=== PATIENT | male | born 1955 | race Caucasian/White ===

== ENCOUNTER 2021-05-11 15:28 | Emergency (ER) | payer OTHER ==
[~2021-05-11] VITALS: Ht 177.8 cm; Wt 113.4 kg
[~2021-05-11 15:28] MED LIST: AMIT75
== END 2021-05-11 16:38 | disposition home or self-care (01) ==
LOC: ER 15:28
DX: F10.129 Alcohol abuse with intoxication, unspecified (principal); Z59.0 Homelessness; R45.4 Irritability and anger
CPT/HCPCS: 99284

== ENCOUNTER 2025-05-06 14:08 | Emergency (ER) | payer OTHER ==
[~2025-05-06] VITALS: Ht 185.4 cm; Wt 108.9 kg
[~2025-05-06 14:08] MED LIST changes: +ALBU90OI INH; +DYAZIDE 37.5-21 EACH PO; +HYDPAM25 PO; +HYDR1TAB94 PO; +PRAZ1 PO; +Prednisone20 MG PO; +Vitamin D1000 UNI1 PO
[2025-05-06 14:57] LABS: Alanine Aminotransfer (ALT/SGP 19.0 U/L (12-78); Albumin, Blood 3.3 g/dL (3.4-5.0); Albumin/Globulin Ratio 0.9 (0.8-1.8); Anion Gap 15.0 mmol/L (3-11); Aspartate Aminotrans (AST/SGOT 32.0 U/L (12-37); Bilirubin, Total 0.3 mg/dL (0.1-1.0); Blood Urea Nitrogen 16.0 mg/dL (8-24); CO2, Blood 19.0 mmol/L (21-32); Calcium, Blood 8.0 mg/dL (8.5-10.1); Chloride, Blood 109.0 mmol/L (98-108); Creatinine, Blood 1.23 mg/dL (0.60-1.20); Ethanol (Alcohol), Blood, Med 181.0 mg/dL; Globulin, Blood 3.5 g/dL (2.2-4.0); Glucose, Blood 86.0 mg/dL (70-99); Potassium, Blood 4.4 mmol/L (3.5-5.5); Sodium, Blood 139.0 mmol/L (136-145); Total Protein, Blood 6.8 g/dL (6.4-8.2)
[2025-05-06] MEDS ORDERED: NS 1,000 ML IV SCH (15:00)
[2025-05-06 17:30] VITALS: BP 103/64
== END 2025-05-06 18:20 | disposition home or self-care (01) ==
LOC: ER 14:08
PROVIDERS: Emergency Medicine
DX: F10.129 Alcohol abuse with intoxication, unspecified (principal); F12.929 Cannabis use, unspecified with intoxication, unspecified; J44.9 Chronic obstructive pulmonary disease, unspecified; F17.200 Nicotine dependence, unspecified, uncomplicated; Z59.00 Homelessness unspecified; Z79.52 Long term (current) use of systemic steroids; Z79.899 Other long term (current) drug therapy; Z88.0 Allergy status to penicillin; Z88.5 Allergy status to narcotic agent; Z88.6 Allergy status to analgesic agent; Z88.8 Allergy status to other drugs, medicaments and biological substances
CPT/HCPCS: 80053; 80320; 93005; 93010; 99285-25; J7030

== ENCOUNTER 2025-06-14 12:34 | Emergency (ER) | payer OTHER ==
[~2025-06-14] VITALS: Ht 182.9 cm; Wt 90.7 kg
[2025-06-14 12:40] VITALS: BP 166/90
== END 2025-06-14 12:45 | disposition home or self-care (01) ==
LOC: ER 12:34
DX: F10.129 Alcohol abuse with intoxication, unspecified (principal); J44.9 Chronic obstructive pulmonary disease, unspecified; F17.210 Nicotine dependence, cigarettes, uncomplicated; Z79.52 Long term (current) use of systemic steroids; Z79.899 Other long term (current) drug therapy; Z88.0 Allergy status to penicillin; Z88.5 Allergy status to narcotic agent; Z88.6 Allergy status to analgesic agent; Z88.1 Allergy status to other antibiotic agents; Z88.8 Allergy status to other drugs, medicaments and biological substances
CPT/HCPCS: 99282

== ENCOUNTER 2025-06-16 20:22 | Inpatient (IN) | payer OTHER ==
[~2025-06-16] VITALS: Ht 182.9 cm; Wt 110.9 kg
[2025-06-16 21:19] LABS: BASOPHILS ABSOLUTE AUTO 0.02 K/mm3 (0.00-0.23); BASOPHILS PERCENT AUTO 0 % (0-2); EOSINOPHILS ABSOLUTE AUTO 0.02 K/mm3 (0.00-0.68); EOSINOPHILS PERCENT AUTO 0 % (0-6); Hematocrit 41.4 % (37.0-53.0); Hemoglobin 13.8 g/dL (13.5-17.5); IMMATURE GRAN ABSOLUTE AUTO 0.03 K/mm3 (0.00-0.10); IMMATURE GRAN PERCENT AUTO 1 % (0-1); LYMPHOCYTES ABSOLUTE AUTO 1.27 K/mm3 (0.84-5.20); LYMPHOCYTES PERCENT AUTO 21 % (21-46); MONOCYTES ABSOLUTE AUTO 0.73 K/mm3 (0.16-1.47); MONOCYTES PERCENT AUTO 12 % (4-13); Mean Corpuscular HGB Conc 33.3 g/dL (31.5-36.5); Mean Corpuscular Volume 93 fL (80-100); NEUTROPHILS ABSOLUTE AUTO 3.97 K/mm3 (1.96-9.15); NEUTROPHILS PERCENT AUTO 66 % (41-73); NRBC ABSOLUTE 0.00 K/mm3 (0.00-0.02); NRBC Auto 0.0 /100 WBC (0.0-0.2); Platelet Count 155 K/mm3 (150-400); RDW Coefficient Variation 16.5 % (11.7-14.2); RDW Standard Deviation 55.8 fL (35.1-46.3)
[2025-06-16 21:46] LABS: Alanine Aminotransfer (ALT/SGP 41.0 U/L (12-78); Albumin, Blood 3.9 g/dL (3.4-5.0); Albumin/Globulin Ratio 1.0 (0.8-1.8); Anion Gap 13.0 mmol/L (3-11); Aspartate Aminotrans (AST/SGOT 64.0 U/L (12-37); Bilirubin, Total 0.4 mg/dL (0.1-1.0); Blood Urea Nitrogen 13.0 mg/dL (8-24); CO2, Blood 23.0 mmol/L (21-32); Calcium, Blood 8.4 mg/dL (8.5-10.1); Chloride, Blood 105.0 mmol/L (98-108); Creatinine, Blood 0.98 mg/dL (0.60-1.20); Ethanol (Alcohol), Blood, Med 137.0 mg/dL; Globulin, Blood 4.1 g/dL (2.2-4.0); Glucose, Blood 102.0 mg/dL (70-99); Potassium, Blood 4.3 mmol/L (3.5-5.5); Sodium, Blood 137.0 mmol/L (136-145); Total Protein, Blood 8.0 g/dL (6.4-8.2)
[2025-06-16] MEDS ORDERED: LORazepam 2 MG/ML 1ML Injection IV ONE (22:55)
[2025-06-17] VITALS (7 sets, daily range): BP systolic 114–165; BP diastolic 68–115
[2025-06-17] MEDS ORDERED: HydrALAZINE HCl 20 MG / ML 1ML Vial IV PRN (00:55)
[2025-06-17] MEDS ORDERED: Ondansetron HCl 2 MG / ML 2ML Vial IV PRN (00:55)
[2025-06-17 04:51] LABS: BASOPHILS ABSOLUTE AUTO 0.04 K/mm3 (0.00-0.23); BASOPHILS PERCENT AUTO 1 % (0-2); EOSINOPHILS ABSOLUTE AUTO 0.03 K/mm3 (0.00-0.68); EOSINOPHILS PERCENT AUTO 0 % (0-6); Hematocrit 39.4 % (37.0-53.0); Hemoglobin 13.1 g/dL (13.5-17.5); IMMATURE GRAN ABSOLUTE AUTO 0.01 K/mm3 (0.00-0.10); IMMATURE GRAN PERCENT AUTO 0 % (0-1); LYMPHOCYTES ABSOLUTE AUTO 1.45 K/mm3 (0.84-5.20); LYMPHOCYTES PERCENT AUTO 22 % (21-46); MONOCYTES ABSOLUTE AUTO 0.87 K/mm3 (0.16-1.47); MONOCYTES PERCENT AUTO 13 % (4-13); Mean Corpuscular HGB Conc 33.2 g/dL (31.5-36.5); Mean Corpuscular Volume 95 fL (80-100); NEUTROPHILS ABSOLUTE AUTO 4.29 K/mm3 (1.96-9.15); NEUTROPHILS PERCENT AUTO 64 % (41-73); NRBC ABSOLUTE 0.00 K/mm3 (0.00-0.02); NRBC Auto 0.0 /100 WBC (0.0-0.2); Platelet Count 151 K/mm3 (150-400); RDW Coefficient Variation 16.4 % (11.7-14.2); RDW Standard Deviation 57.1 fL (35.1-46.3)
[2025-06-17 05:13] LABS: Alanine Aminotransfer (ALT/SGP 35.0 U/L (12-78); Albumin, Blood 3.5 g/dL (3.4-5.0); Albumin/Globulin Ratio 1.0 (0.8-1.8); Anion Gap 10.0 mmol/L (3-11); Aspartate Aminotrans (AST/SGOT 51.0 U/L (12-37); Bilirubin, Total 0.7 mg/dL (0.1-1.0); Blood Urea Nitrogen 13.0 mg/dL (8-24); CO2, Blood 24.0 mmol/L (21-32); Calcium, Blood 8.2 mg/dL (8.5-10.1); Chloride, Blood 107.0 mmol/L (98-108); Creatinine, Blood 0.91 mg/dL (0.60-1.20); Globulin, Blood 3.5 g/dL (2.2-4.0); Glucose, Blood 90.0 mg/dL (70-99); Magnesium, Blood 2.1 mg/dL (1.6-2.4); Potassium, Blood 3.9 mmol/L (3.5-5.5); Sodium, Blood 137.0 mmol/L (136-145); Total Protein, Blood 7.0 g/dL (6.4-8.2)
--- NOTE | 2025-06-17 05:13 | NUR ---
ARRIVAL TO UNIT - REPORT RECEIVED FROM MARIO IN ER AT 0400. PT ARRIVES TO [facility] 08 AT 0430. HE IS ASLEEP IN THE GURNEY, BUT ROUSES EASILY TO VERBAL STIMULI. HE IS ORIENTED TO SELF, PLACE, AND SITUATION, BUT OFF BY A DAY ON DATE. CIWA SCORE 13, HEADACHE, OBVIOUS TREMORS, REPORTING VISUAL AND AUDITORY DISTURBANCES. HE ENDORSES A MILD HEADACHE THAT HE RECEIVED TYLENOL FOR IN THE ER. HE IS COOPERATIVE WITH CARE AND FOLLOWING COMMANDS. PTS PERSONAL WHEELCHAIR AND BELONGINGS IN ROOM. HE REPORTS THAT HE USES HIS WHEELCHAIR "MOST OF THE TIME." HE IS ON ROOM AIR, SATS ABOVE 90% WITH VERY BRIEF DESATS WHILE SLEEPING. HE IS HYPERTENSIVE WITH BP IN 160'S. ON CONTINUOUS CARDIAC MONITORING AND IN A SINUS RHYTHM. PT REPORTS THAT HE SLEEPS IN HIS WHEELCHAIR WHEREVER HE CAN FIND SOMEWHERE DRY. UNABLE TO COMPLETE MEDICAL HISTORY DUE TO PATIENTS INABILITY TO STAY AWAKE. PER ER, PT STATED HE DRINKS 4-5 LARGE BEERS PER DAY, LAST DRINK ON 06/16 AT 1200. HE HAS BILATERAL AC IV'S, BOTH PATENT.
--- NOTE | 2025-06-17 07:54 | NUR ---
ASSUMPTION NOTE: PATIENT IS EASILY AROUSABLE WHEN RESTING. BREAKFAST TRAY WAS BROUGHT IN AND PATIENT SAT UP TO EAT. VITAL SIGNS STABLE. PATIENT REPORTED A HEADACHE AND HAS TREMORS. STATES "HE SEES PEOPLE AND HE'S NOT SURE HOW MANY ARE ALL REAL". THIS RN TO BRING IN MORNING MEDICATIONS AND MEDICATIONS PER CIWA SCORE. HAS CALL LIGHT WITHIN REACH & STATING NOTHIGN ELSE IS NEEDED AT THIS TIME.
--- NOTE | 2025-06-17 08:56 | NUR ---
MD ROUNDED: MD ROUNDED AND SPOKE WITH PATIENT REGARDING THE PLAN OF DISCHARGING EARLY THURSDAY TO CONTINUE HIS JOURNEY TO [place]. PATIENT REPORTED HE TAKES A RESCUE INHALER AT HOME, MD TO LOOK AT MED REC AND ADD NEEDED.
[2025-06-17] MEDS ORDERED: Albuterol HFA200 ACT/6.7 GM INH INH PRN (12:40)
--- NOTE | 2025-06-17 12:41 | NUR ---
MD CALLED: THIS RN CALLED MD REGARDING PATIENT REQUESTING HIS RESCUE INHALER, THIS RN GOT VERBAL ORDER FOR RESCUE INHALER TO BE ADDED. RT WAS CALLED AND WILL BE STOPPING BY SHORTLY TO DO THAT.
--- NOTE | 2025-06-17 17:10 | NUR ---
SHIFT SUMMARY: PATIENT IS ALERT AND ORIENTED X4 & COOPERATIVE WITH HIS CARE, IS ABLE TO MAKE NEEDS KNOWN & USES CALL LIGHT APPROPRIATELY. SATTING >92% ON 1-2LITERS PRN NEEDED, RESCUE INHALER WAS ALSO ADDED TO EMAR. ON TELE SHOWING SINUS RYTHM WITH RATE IN 80'S. PATIENT CIWA'S Q4 AND HAVE BEEN RANGING FROM 13-15, MEDICATED WITH LIBRIUM AND ATIVAN THROUGHOUT THE SHIFT. PATIENT SHOWERED TODAY AND PLAN CONTINUES TO BE TO MONITOR WITHDRAWL AND MEDICATE PER CIWA. WILL BE LOOKING AT DISCHARGE THURSDAY TO [place]. PATIENT HAS CALL LIGHT WITHIN REACH, BED IN LOWEST POSITION & STATING NOTHING ELSE IS NEEDED AT THIS TIME.
[2025-06-18 04:33] VITALS: BP 126/73
--- NOTE | 2025-06-18 05:14 | NUR ---
SHIFT SUMMARY- PT REMAINED ALERT AND ORIENTED TO SELF, PLACE, SITUATION T/O SHIFT. REMAINS UNCLEAR ON DATE. CONSISTENTLY ENDORSED HEADACHE T/O SHIFT. TREATING WITH TYLENOL. CIWA SCORES 15-16, TREATING WITH PO ATIVAN AND LIBRIUM. HE IS PLEASANT AND COOPERATIVE WITH CARE. STATES HE IS HEARING VOICES THAT TELL HIM TO , BUT ALSO REPORTS THAT HE KNOWS THEY AREN'T REAL. ALSO REPORTS SEEING FACES AND BUGS. 1P ASSIST TO BATHROOM WITH FWW. HE REMAINED ON ROOM AIR. IN A SINUS RHYTHM. VSS. NO ACUTE EVENTS OVERNIGHT.
--- NOTE | 2025-06-18 08:22 | NUR ---
ASSUMPTION NOTE: THIS RN TO ASSUME CARE OF PATIENT. PATIENT REPORTED FEELING NAUSEAOUS AND HAVING A HEADACHE. PATIENT WAS GIVEN MEDICATION PER EMAR FOR BOTH WILL REASSES IN 15MINUTES FOR A CHANGE IN SYMPTOMS. PATIENT FINISHED BREAKFAST AND AWARE PATIENT IS NOT ABLE TO LIBRIUM AND ATIVAN AT THIS TIME. PATIENT HAS CALL LIGHT WITHIN REACH, BED IN LOWEST POSITION & STATING NOTHING ELSE IS NEEDED AT THIS TIME.
[2025-06-18 08:26] VITALS: BP 133/85
--- NOTE | 2025-06-18 09:39 | NUR ---
MD CIFUENTES: MD ROUNDED AND PATIENT REPORTED HE CONTINUED TO HAVE A HEADACHE AND GAVE VERBAL ORDER FOR A ONE TIME DOSE FOR [place]. PATIENT AWARE MD IS MAKING HIM MEDCIAL STATUS WITH TELE. PATIENT AWARE PLAN TO CONTINUE TO GO WITHDRAWS AND CIWAS Q4. LOOKING AT DISCHARGE ON THURSDAY TO CONTINUE WITHDRAWS IN [place].
[2025-06-18 12:36] VITALS: BP 147/91
--- NOTE | 2025-06-18 16:42 | NUR ---
PATIENT LEFT AMA: PATIENT CALLED THIS RN IN AND STATED "HE WANTS TO GO HOME". PATIENT REPORTED THAT THERE WAS NO POINT TO GO THROUGH WITH THIS. THIS RN TALKED WITH PATIENT AND ASKED IF HIS GOAL WAS TO QUIT DRINKING WE WERE TOLD [facility] WAS WHERE HE WAS HEADED TOMORROW SOMETIME. HE STATES "THEY MAKE IT SEEM SO FANCY AND NICE BUT IN REALITY IT'S TERRIBLE TO QUIT". THIS RN NOTIFIED MD AND MD AWARE THAT PATIENT WOULD LIKE TO LEAVE AMA. PATIENT SIGNED THE PAPERWORK AND AWARE OF THE RISKS INVOVLED WITH LEAVING AT THIS TIME. IV'S WERE TAKEN OUT,TELE TAKEN OFF AND PATIENT TOOK ALL PERSONAL BELONGINGS WITH HIM. WHEELED HIMSELF OUT OF THE HOSPITAL.
== END 2025-06-18 17:39 | disposition left against medical advice (07) | DRG 894 ==
LOC: ER 20:22 → PCU 06-17 00:50
PROVIDERS: Student in an Organized Health Care Education/Training Program; ADMIT Student in an Organized Health Care Education/Training Program
DX: F10.239 Alcohol dependence with withdrawal, unspecified (principal); R56.9 Unspecified convulsions; J44.9 Chronic obstructive pulmonary disease, unspecified; R51.9 Headache, unspecified; M19.90 Unspecified osteoarthritis, unspecified site; Z96.641 Presence of right artificial hip joint; F17.210 Nicotine dependence, cigarettes, uncomplicated; R25.1 Tremor, unspecified; Z53.29 Procedure and treatment not carried out because of patient's decision for other reasons; Z88.0 Allergy status to penicillin; Z98.890 Other specified postprocedural states; Z88.5 Allergy status to narcotic agent; Z88.8 Allergy status to other drugs, medicaments and biological substances; Y90.6 Blood alcohol level of 120-199 mg/100 ml
CPT/HCPCS: 36415; 80053; 80320; 83735; 85025; 93005; 93010; 94640; 94664; 94760; 96374; 99285-25; A9270; J0360; J2060; J2405; J3411

== ENCOUNTER 2025-06-22 16:47 | Inpatient (IN) | payer OTHER ==
[~2025-06-22] VITALS: Ht 182.9 cm; Wt 118.2 kg
[2025-06-22] MEDS ORDERED: NS 1,000 ML IV SCH ×2 (17:25→20:45)
[2025-06-22 18:11] LABS: BASOPHILS ABSOLUTE AUTO 0.03 K/mm3 (0.00-0.23); BASOPHILS PERCENT AUTO 0 % (0-2); EOSINOPHILS ABSOLUTE AUTO 0.01 K/mm3 (0.00-0.68); EOSINOPHILS PERCENT AUTO 0 % (0-6); Hematocrit 41.4 % (37.0-53.0); Hemoglobin 13.4 g/dL (13.5-17.5); IMMATURE GRAN ABSOLUTE AUTO 0.06 K/mm3 (0.00-0.10); IMMATURE GRAN PERCENT AUTO 1 % (0-1); LYMPHOCYTES ABSOLUTE AUTO 1.26 K/mm3 (0.84-5.20); LYMPHOCYTES PERCENT AUTO 11 % (21-46); MONOCYTES ABSOLUTE AUTO 1.45 K/mm3 (0.16-1.47); MONOCYTES PERCENT AUTO 12 % (4-13); Mean Corpuscular HGB Conc 32.4 g/dL (31.5-36.5); Mean Corpuscular Volume 95 fL (80-100); NEUTROPHILS ABSOLUTE AUTO 8.89 K/mm3 (1.96-9.15); NEUTROPHILS PERCENT AUTO 76 % (41-73); NRBC ABSOLUTE 0.00 K/mm3 (0.00-0.02); NRBC Auto 0.0 /100 WBC (0.0-0.2); Platelet Count 319 K/mm3 (150-400); RDW Coefficient Variation 15.8 % (11.7-14.2); RDW Standard Deviation 55.7 fL (35.1-46.3)
[2025-06-22 18:24] LABS: Alanine Aminotransfer (ALT/SGP 25.0 U/L (12-78); Albumin, Blood 3.3 g/dL (3.4-5.0); Albumin/Globulin Ratio 0.8 (0.8-1.8); Anion Gap 11.0 mmol/L (3-11); Aspartate Aminotrans (AST/SGOT 40.0 U/L (12-37); Bilirubin, Total 0.5 mg/dL (0.1-1.0); Blood Urea Nitrogen 13.0 mg/dL (8-24); CO2, Blood 24.0 mmol/L (21-32); Calcium, Blood 8.3 mg/dL (8.5-10.1); Chloride, Blood 99.0 mmol/L (98-108); Creatinine, Blood 0.97 mg/dL (0.60-1.20); Ethanol (Alcohol), Blood, Med 184.0 mg/dL; Globulin, Blood 4.3 g/dL (2.2-4.0); Glucose, Blood 91.0 mg/dL (70-99); Potassium, Blood 3.6 mmol/L (3.5-5.5); Sodium, Blood 130.0 mmol/L (136-145); Total Protein, Blood 7.6 g/dL (6.4-8.2)
[2025-06-22 18:58] LABS: Prothrombin Time Results 10.0 Sec (9.7-11.5)
[2025-06-22] MEDS ORDERED: OxyCODONE 5 mg/Acetamin 325 mg TABLET PO ONE (19:20)
[2025-06-22] MEDS ORDERED: Ondansetron HCl 2 MG / ML 2ML Vial IV PRN ×2 (19:30→19:40)
[2025-06-22] MEDS ORDERED: LORazepam 2 MG/ML 1ML Injection IV PRN ×3 (19:30→21:20)
[2025-06-22] MEDS ORDERED: Metoclopramide HCl 5MG / ML 2ML Vial IV PRN (19:30)
[2025-06-22] MEDS ORDERED: OxyCODONE 5 mg/Acetamin 325 mg TABLET PO PRN (19:35)
[2025-06-22] MEDS ORDERED: FentaNYL Citrate 50 MCG/ML 2 ML Injection IV PRN (19:35)
[2025-06-22] MEDS ORDERED: Albuterol 2.5 MG/3 ML VIAL INH PRN (19:40)
[2025-06-22] MEDS ORDERED: Magnesium Hydroxide Conc 10 ML UDC PO PRN (19:40)
[2025-06-22 20:14] LABS: U Amphetamine Screen Not Detected; U Barbituate Screen Not Detected; U Benzodiazapine Screen DETECTED; U Buprenorphine Screen Not Detected; U Cannabinoids Screen DETECTED; U Cocaine Screen Not Detected; U Methadone Screen Not Detected; U Methamphetamine Screen Not Detected; U Opiates Screen Not Detected; U Oxycodone Screen Not Detected; U Phencyclidine Screen Not Detected
[2025-06-22 21:50] VITALS: BP 92/60
[2025-06-22 22:00] VITALS: BP 107/67
[2025-06-22 22:30] VITALS: BP 118/78
[2025-06-22 23:00] VITALS: BP 103/59
[2025-06-22 23:30] VITALS: BP 95/73
[2025-06-23] VITALS (12 sets, daily range): BP systolic 85–139; BP diastolic 59–86
[2025-06-23 04:23] LABS: BASOPHILS ABSOLUTE AUTO 0.04 K/mm3 (0.00-0.23); BASOPHILS PERCENT AUTO 0 % (0-2); EOSINOPHILS ABSOLUTE AUTO 0.02 K/mm3 (0.00-0.68); EOSINOPHILS PERCENT AUTO 0 % (0-6); Hematocrit 38.1 % (37.0-53.0); Hemoglobin 12.4 g/dL (13.5-17.5); IMMATURE GRAN ABSOLUTE AUTO 0.05 K/mm3 (0.00-0.10); IMMATURE GRAN PERCENT AUTO 1 % (0-1); LYMPHOCYTES ABSOLUTE AUTO 1.39 K/mm3 (0.84-5.20); LYMPHOCYTES PERCENT AUTO 13 % (21-46); MONOCYTES ABSOLUTE AUTO 1.75 K/mm3 (0.16-1.47); MONOCYTES PERCENT AUTO 17 % (4-13); Mean Corpuscular HGB Conc 32.5 g/dL (31.5-36.5); Mean Corpuscular Volume 97 fL (80-100); NEUTROPHILS ABSOLUTE AUTO 7.28 K/mm3 (1.96-9.15); NEUTROPHILS PERCENT AUTO 69 % (41-73); NRBC ABSOLUTE 0.00 K/mm3 (0.00-0.02); NRBC Auto 0.0 /100 WBC (0.0-0.2); Platelet Count 300 K/mm3 (150-400); RDW Coefficient Variation 16.1 % (11.7-14.2); RDW Standard Deviation 56.9 fL (35.1-46.3)
[2025-06-23 04:52] LABS: Alanine Aminotransfer (ALT/SGP 22.0 U/L (12-78); Albumin, Blood 2.9 g/dL (3.4-5.0); Albumin/Globulin Ratio 0.8 (0.8-1.8); Anion Gap 8.0 mmol/L (3-11); Aspartate Aminotrans (AST/SGOT 29.0 U/L (12-37); Bilirubin, Total 0.6 mg/dL (0.1-1.0); Blood Urea Nitrogen 18.0 mg/dL (8-24); CO2, Blood 27.0 mmol/L (21-32); Calcium, Blood 8.6 mg/dL (8.5-10.1); Chloride, Blood 100.0 mmol/L (98-108); Creatinine, Blood 1.0 mg/dL (0.60-1.20); Globulin, Blood 3.5 g/dL (2.2-4.0); Glucose, Blood 98.0 mg/dL (70-99); Magnesium, Blood 2.1 mg/dL (1.6-2.4); Potassium, Blood 4.1 mmol/L (3.5-5.5); Sodium, Blood 131.0 mmol/L (136-145); Total Protein, Blood 6.4 g/dL (6.4-8.2)
--- NOTE | 2025-06-23 06:27 | NUR ---
SHIFT SUMMARY PATIENT ARRIVED TO PCU 01 VIA STRETCHER. PATIENT IS WHEELCHAIR BOUND AT BASELINE, SLIDE TRANSFER COMPLETED. HE IS ALERT AND ORIENTED X4. NOTABLE BRUSING SEEN ON HIS LEFT CHEST AND SHOULDER, PAIN REPORTED IN THE AREA WELL. MEDICATED PER EMAR FOR PAIN. PATIENT PLACED ON 2 LITERS O2 VIA NC TO MAINTAIN SPO2 >94%, BREATHING TREATMENT PER RT. BLOOD PRESSURE SOFT INITIALLY UPON ADMIT BUT HAS INCREASED TO SBP BEING >105, MAP ALWAYS >65. PATIENT HAS BEEN PLEASANT AND COOPORATIVE WITH CARE. WILL CONTINUE TO MONITOR. CALL LIGHT WITHIN REACH.
[2025-06-23] MEDS ORDERED: Folic Acid 1 MG TAB PO SCH (09:00)
[2025-06-23] MEDS ORDERED: Multivitamins 1 Tab PO SCH (09:00)
--- NOTE | 2025-06-23 10:15 | NUR ---
DR. MARION NOTIFIED OF CONSULT.
[2025-06-23] MEDS ORDERED: OxyCODONE 5 mg/Acetamin 325 mg TABLET PO PRN (12:35)
--- NOTE | 2025-06-23 16:20 | NUR ---
SHIFT SUMMARY PATIENT A/OX4 THROUGHOUT SHIFT. NO RESP DISTRESS. PAIN IN LEFT CHEST WALL/ RIB AREA AND PAIN WHILE MOVING LEFT ARM. PATIENT MEDICATED PERIODICALLY FOR PAIN. FREQUENT REPOSITIONING. PATIENT ABLE TO MOVE HIMSELF UP IN BED. CIWA 8-10. PATIENT MEDICATED PRN WITH LIBRIUM AND TOLERATED WELL. PATIENT TOLERATING PO INTAKE. PATIENT GIVEN INCENTIVE SPIROMETER AND EDUCATED ON USE AND FREQUENCY RECOMMENDED. PATIENT GIVEN SLING ORDERD BY ORTHO, BUT REFUSES TO WEAR IT DUE TO DISCOMFORT. ORTHO RECOMMENDED OUTPATIENT FOLLOW UP. SPOKE WITH MARCIO SARAVIA FROM [place]. SHE STATES THEY ARE ACTIVELY TRYING TO GET HIM INTO A SUBSTANCE ABOUT PROGRAM IN [facility]. WARM HANDOFF TO [facility] WITH CARE COORDINATION TO FOLLOW UP. PATIENT USING CALL LIGHT APPROPRIATELY. BED IN LOWEST POSITION. ANTICIPATE STATUS CHANGE TOMORROW IF CIWA CONTINUES TO IMPROVE.
[2025-06-23] MEDS ORDERED: Acetaminophen650 M1 PO (21:07)
[2025-06-23] MEDS ORDERED: EUCERIN ADVANC454 GM TOP (21:09)
[2025-06-24 03:29] LABS: BASOPHILS ABSOLUTE AUTO 0.05 K/mm3 (0.00-0.23); BASOPHILS PERCENT AUTO 1 % (0-2); EOSINOPHILS ABSOLUTE AUTO 0.09 K/mm3 (0.00-0.68); EOSINOPHILS PERCENT AUTO 1 % (0-6); Hematocrit 36.0 % (37.0-53.0); Hemoglobin 11.9 g/dL (13.5-17.5); IMMATURE GRAN ABSOLUTE AUTO 0.02 K/mm3 (0.00-0.10); IMMATURE GRAN PERCENT AUTO 0 % (0-1); LYMPHOCYTES ABSOLUTE AUTO 1.66 K/mm3 (0.84-5.20); LYMPHOCYTES PERCENT AUTO 20 % (21-46); MONOCYTES ABSOLUTE AUTO 1.32 K/mm3 (0.16-1.47); MONOCYTES PERCENT AUTO 16 % (4-13); Mean Corpuscular HGB Conc 33.1 g/dL (31.5-36.5); Mean Corpuscular Volume 95 fL (80-100); NEUTROPHILS ABSOLUTE AUTO 5.03 K/mm3 (1.96-9.15); NEUTROPHILS PERCENT AUTO 62 % (41-73); NRBC ABSOLUTE 0.00 K/mm3 (0.00-0.02); NRBC Auto 0.0 /100 WBC (0.0-0.2); Platelet Count 292 K/mm3 (150-400); RDW Coefficient Variation 15.9 % (11.7-14.2); RDW Standard Deviation 56.3 fL (35.1-46.3)
[2025-06-24 03:40] VITALS: BP 120/71
[2025-06-24 04:00] LABS: Anion Gap 7.0 mmol/L (3-11); Blood Urea Nitrogen 15.0 mg/dL (8-24); CO2, Blood 27.0 mmol/L (21-32); Calcium, Blood 8.2 mg/dL (8.5-10.1); Chloride, Blood 103.0 mmol/L (98-108); Creatinine, Blood 0.94 mg/dL (0.60-1.20); Glucose, Blood 100.0 mg/dL (70-99); Potassium, Blood 3.7 mmol/L (3.5-5.5); Sodium, Blood 133.0 mmol/L (136-145)
--- NOTE | 2025-06-24 07:13 | NUR ---
SHIFT SUMMARY PATIENT ALERT AND ORIENTED X4. MEDICATED PER EMAR FOR PAIN AND CIWA SCORES. ON ROOM AIR WHILE AWAKE, OCCASIONALLY NEEDS 2 LITERS O2 VIA NC WHILE SLEEPING. VITAL SIGNS STABLE. NO ACUTE ISSUES NOTED OVERNIGHT. WILL CONTINUE TO MONITOR. CALL LIGHT WITHIN REACH.
[2025-06-24 07:48] VITALS: BP 136/86
[2025-06-24 12:03] VITALS: BP 154/86
[2025-06-24 16:13] VITALS: BP 143/89
--- NOTE | 2025-06-24 17:04 | NUR ---
SHIFT SUMMARY PATIENT IS ALERT AND ORIENTED, ABLE TO FOLLOW COMMANDS AND MAKE NEEDS KNOWN. VSS, SPO2 85-97%, PATIENT RELUCTANT TO WEAR SUPPLEMENTAL 02, EDUCATION PROVIDED, PATIENT INTERMITTENTLY ON 2L VIA NC THROUGHOUT SHIFT. PATIENT RESTLESS THIS SHIFT, CIWA SCORE OF 12 AND UNDER, SEE EMAR FOR MANAGEMENT. PATIENT REPORTS SIGNIFICANT PAIN RELATED TO LEFT RIB AND CLAVICLE FRACTURES, MEDICATED PER EMAR WITH REPORTED RELIEF FROM PATIENT. PATIENT DENIES PALPITATIONS OR SUBSTERNAL CHEST PAIN. PATIENT REPORTS SOME DIFFICULTY BREATHING DUE TO FRACTURES, OCCASIONAL WET COUGH NOTED. PATIENT REPORTS MILD NAUSEA WITH NO EPISODES OF EMESIS THIS SHIFT. PATIENT HAS MULTIPLE BRUISES THROUGHOUT SECONDARY TO FALL PRIOR TO ADMISSION. PATIENT IS WHEELCHAIR BOUND AT BASELINE. PT ASSESSED PATIENT THIS SHIFT, SEE NOTE FOR RECOMMENDATIONS AND PLAN. PATIENT LYING IN BED, BED IN LOWEST POSITION, CALL LIGHT WITHIN REACH.
[2025-06-24 20:26] VITALS: BP 144/90
[2025-06-24 23:45] VITALS: BP 121/80
[2025-06-25 03:39] VITALS: BP 127/83
[2025-06-25 04:30] LABS: BASOPHILS ABSOLUTE AUTO 0.06 K/mm3 (0.00-0.23); BASOPHILS PERCENT AUTO 1 % (0-2); EOSINOPHILS ABSOLUTE AUTO 0.14 K/mm3 (0.00-0.68); EOSINOPHILS PERCENT AUTO 2 % (0-6); Hematocrit 38.7 % (37.0-53.0); Hemoglobin 12.6 g/dL (13.5-17.5); IMMATURE GRAN ABSOLUTE AUTO 0.03 K/mm3 (0.00-0.10); IMMATURE GRAN PERCENT AUTO 0 % (0-1); LYMPHOCYTES ABSOLUTE AUTO 1.74 K/mm3 (0.84-5.20); LYMPHOCYTES PERCENT AUTO 22 % (21-46); MONOCYTES ABSOLUTE AUTO 1.14 K/mm3 (0.16-1.47); MONOCYTES PERCENT AUTO 14 % (4-13); Mean Corpuscular HGB Conc 32.6 g/dL (31.5-36.5); Mean Corpuscular Volume 97 fL (80-100); NEUTROPHILS ABSOLUTE AUTO 4.88 K/mm3 (1.96-9.15); NEUTROPHILS PERCENT AUTO 61 % (41-73); NRBC ABSOLUTE 0.00 K/mm3 (0.00-0.02); NRBC Auto 0.0 /100 WBC (0.0-0.2); Platelet Count 342 K/mm3 (150-400); RDW Coefficient Variation 15.9 % (11.7-14.2); RDW Standard Deviation 56.7 fL (35.1-46.3)
--- NOTE | 2025-06-25 07:32 | NUR ---
END OF SHIFT REPORT PT CIWA SCORED BETWEEN 11 AND 12 OVERNIGHT. PRN LIBRIUM 50 MG GIVEN TIMES 2 AND PRN 2 MG IV ATIVAN GIVEN TIMES ONE. PT C/O PAIN TO LEFT SHOULDER AND L HIP OVERNIGHT AND PRN PERCOCET GIVEN TIMES 2. PT ATE SNACKS, AND ENCOURAGED TO KEEP ARM IN SLING TOLERATED PT NONCOMPLIANT W THIS. DAY RNS GOING TO TRY TO GET BRACE FOR LEFT CLAVICLE WIDENED FOR COMFORT. CURRENT BRACE IS LARGE CDU CARRIES SO THEY ARE GOING TO TRY TO ADD A SMALL BRACE TO IT TO ENLARGE THE SIZE. PT ALSO INTERMITTENTLY TAKING OFF NC AND DESATTING WHILE RESTING TO 83%. OTHER TIMES PT SATS 94% ON ROOM AIR. PT HAD SEVERAL SNACKS OVERNIGHT. BP STABLE AND AFEBRILE.
[2025-06-25 07:36] VITALS: BP 161/91
[2025-06-25 11:17] VITALS: BP 132/87
[2025-06-25 15:26] VITALS: BP 125/75
--- NOTE | 2025-06-25 17:47 | NUR ---
SHIFT SUMMARY PATIENT IS ALERT AND ORIENTED, ABLE TO FOLLOW COMMANDS AND MAKE NEEDS KNOWN. PATIENT HAS BEEN ANXIOUS THIS SHIFT, REPORTING INTERMITTENT HEADACHES AND NAUSEA, SEE CIWA FOR FURTHER INFORMATION, MEDICATED PER EMAR. VSS, SPO2 >90% ON 2L VIA NC, PATIENT DENIES PRESENCE OF SUBSTERNAL CHEST PAIN OR PALPITATIONS. PATIENT REPORTS MODERATE TO SEVERE LEFT CLAVICLE AND RIB PAIN DUE TO FRACTURE, ANALGESICS PROVIDED PER EMAR. PATIENT ENCOURAGED AND EDUCATED ON THE USE OF A SLING TO IMMOBILIZE LEFT ARM AND SHOULDER, PATIENT HAS BEEN RELUCTANT TO WEAR SLING THIS SHIFT. PATIENT IS A SBA TO BATHROOM FOR LINE AND CORD MANAGEMENT. PATIENT UP IN BED, BED IN LOWEST POSITION, CALL LIGHT WITHIN REACH.
[2025-06-25 19:51] VITALS: BP 146/81
[2025-06-26 00:07] VITALS: BP 146/87
[2025-06-26 04:30] VITALS: BP 137/86
--- NOTE | 2025-06-26 05:20 | NUR ---
NOC SHIFT SUMMARY PT IS A+O X4 ABLE TO MAKE NEEDS KNOWN, WAS ANXIOUS ON AND ODD DURING THE NIGHT. PT IS REQURING Q4 PAIN MEDICATIONS FOR LEFT CLAVICLE AND RIB PAIN. PT ONLY WORE BRACE FOR AROUND TWO HOURS THEN TOOK IT OFF. PATIENT NEEDS FREQUENT REMINDERS TO PUT O2 BACK IN HIS NOSE, HE WILL TAKE IT OUT AND DESAT. PT CURRENTLY ON 3L SATTING 93%. CIWA'S 8-10 DURING SHIFT, MEDICATE PER EMAR, REPORTING MCGRATH, NAUSEA AND ANXIETY. DENIES CHEST PAIN OR PRESSURE. BP STABLE. PT REQUESTING COFFEE ALL NIGHT. GOOD URINE OUTPUT, USES URINAL INDEPT. BED ALARM ON FOR SAFETY, CALL LIGHT IN REACH. CARE CONTINUES, WILL REPORT TO ONCOMING RN.
[2025-06-26 09:18] VITALS: BP 104/74
--- NOTE | 2025-06-26 09:46 | NUR ---
ROUNDING WITH DR. LANG REGARDING PT PLAN OF CARE. CONFIRMED OK TO HAVE NO IV PER DR. LANG
[2025-06-26 12:55] VITALS: BP 126/76
--- NOTE | 2025-06-26 15:45 | NUR ---
PT TRANSFERED FROM [facility] TO ROOM 303.
--- NOTE | 2025-06-26 15:46 | NUR ---
SHIFT SUMMARY/TRANSFER TO [facility] FLOOR PATIENT IS ALERT AND ORIENTED, ABLE TO FOLLOW COMMANDS AND MAKE NEEDS KNOWN. PATIENT REPORTING SIGNIFICANT LEVELS OF PAIN TO LEFT RIBS AND CLAVICLE, MEDICATED PER EMAR. PATIENT ENCOURAGED TO USE SLING, PATIENT DECLINED, PATIENT PROVIDED EDUCATION ON USE OF SLING. VSS, SPO2 >90% ON RA, PATIENT REQUIRES 2L VIA NC WHILE SLEEPING. PATIENT REPORTS MILD BLOATING DUE TO LACK OF BOWEL MOVEMENT THIS SHIFT, PATIENT MEDICATED PER EMAR, ENCOURAGED TO AMBULATE AND INCREASE ORAL FLUIDS. PATIENT USES A WHEELCHAIR AT BASELINE, PATIENT INDEPENDENTLY TRANSFER IN AND OUT OF BED. PATIENT WAS SEEN BY PT/OT THIS SHIFT, SEE NOTES FOR RECOMMENDATIONS. REPORT GIVEN TO MEDICAL FLOOR NURSE AT 1530. PATIENT LEFT UNIT VIA WHEELCHAIR WITH ALL PERSONAL BELONGINGS, PATIENT EXHIBITING NO SIGNS OF DISTRESS.
[2025-06-26 20:26] VITALS: BP 113/72
[2025-06-27 02:01] VITALS: BP 117/69
--- NOTE | 2025-06-27 06:45 | NUR ---
Shift Summary Pt is very pain, Q4 oxycodone 10mg was not controlling pain. I called the medical radiation tech this AM who changed oxycodone order to 10-20 mg and said if that does not work we will need to restore IV access for pain control, pt has a no IV access order as of yesterday. Pt is AOX4, indepenent in the room. He did not sleep much due to pain.
[2025-06-27 07:53] VITALS: BP 118/73
[2025-06-27 15:41] VITALS: BP 113/88
--- NOTE | 2025-06-27 18:28 | NUR ---
SHIFT SUMMARY PT IS A/OX4. WHEELCHAIR AT BASELINE, ABLE TO INDEPENDENTLY TRANSFER TO WHEELCHAIR. NO ACUTE CHANGES THROUGHOUT THIS SHIFT. VISITED BY SUPERVISOR ELECTRIC THIS AFTERNOON. PLAN TO DC TO [facility] SUBSTANCE ABUSE PROGRAM. PT RECIEVED OXYCODONE X2 THIS SHIFT PER DEC. PT IS COOPERATIVE WITH CARE AND CALLS APPROPRIATELY USING THE CALL LIGHT.
[2025-06-27 19:36] VITALS: BP 138/90
[2025-06-28 03:28] VITALS: BP 149/100
--- NOTE | 2025-06-28 06:25 | NUR ---
Shift Summary Pt still very painful, rating pain 8-9/10 every 4 hours. He says pain is adequately managed on current orders of 20 mg oxycodone Q4. He was able to sleep on/off t/o the night. He is on 2L O2 NC at the moment which he often takes off. While on RA his SPO2 has been around 86-90. On 2L he stays above 91% with occasion dips down to 88%. He is AOx4 and transfers to his independently.
[2025-06-28 07:21] VITALS: BP 118/86
[2025-06-28] MEDS ORDERED: SENNA LAXATIVE8.6 MG PO (10:00)
[2025-06-28] MEDS ORDERED: FOLI1 PO (10:01)
[2025-06-28] MEDS ORDERED: DOCU100 PO (10:01)
[2025-06-28] MEDS ORDERED: OXYC10ER PO (10:02)
--- NOTE | 2025-06-28 11:51 | NUR ---
SHIFT SUMMARY AND DISCHARGE PATIENT ALERT AND INTERACTIVE. PATIENT MUMBLES WHEN SPEAKS, MAKING CHALLENGING TO UNDERSTAND. PATIENT EAGER TO GO TO [place] TO THE REHAB FACILITY FOR ALCOHOL. PATIENT TALKING ABOUT [facility] IN [place] FROM BEING ARRESTED. QUESTIONED PATIENT HOW HE GOT TO [place]. "THEY BROUGHT ME HERE" PATIENT INDEPENDENT TO WHEELCHAIR. PATIENT FULLY DRESSED AT START OF SHIFT AND PACKING BELONGINS. PATIENT CONTINUES TO HAVE L RIB AND SHOULDER PAIN. PATIENT MEDICATED PER DEC. PATIENT APPLYING VASOLINE TO SKIN AT SHIFT CHANGE. PATIENT EDUCATED ON FALL RISK AND SAFE TRANSFERS. PATIENT NOTED TO HAVE MULTIPLE AREAS OF ABRASIONS AND BRUISING. PATIENT STATES HE FELL OUT OF HIS WHEELCHAIR AND ROLLED DOWN AND LANDED ON SOMETHING CAUSING HIS INJURIES PRIOR TO ADMISSION. BELONGINGS SENT WITH PATIENT. NO IV, NO TELE. PATIENT SORTED THROUGH BELONGINGS AND THREW CLOTHING ITEMS IN THE TRASH. PATIENT TAKEN OUT VIA TRANSPORT IN OWN PERSONAL WHEELCHAIR.
== END 2025-06-28 11:31 | DRG 183 ==
LOC: ER 16:47 → PCU 19:30 → MEDS 19:30 → PCU 06-24 09:33 → MEDS 06-26 15:37
PROVIDERS: Emergency Medicine; Internal Medicine; Nurse Practitioner Acute Care; Student in an Organized Health Care Education/Training Program; ADMIT Surgery
DX: S22.42XA Multiple fractures of ribs, left side, initial encounter for closed fracture (principal); S27.2XXA Traumatic hemopneumothorax, initial encounter; E87.1 Hypo-osmolality and hyponatremia; F10.239 Alcohol dependence with withdrawal, unspecified; E87.21 Acute metabolic acidosis; Z59.02 Unsheltered homelessness; S42.022A Displaced fracture of shaft of left clavicle, initial encounter for closed fracture; N28.89 Other specified disorders of kidney and ureter; J34.89 Other specified disorders of nose and nasal sinuses; F17.210 Nicotine dependence, cigarettes, uncomplicated; N28.1 Cyst of kidney, acquired; F10.229 Alcohol dependence with intoxication, unspecified; D64.9 Anemia, unspecified; R09.02 Hypoxemia; Z96.641 Presence of right artificial hip joint; Z88.0 Allergy status to penicillin; Z88.5 Allergy status to narcotic agent; Z88.8 Allergy status to other drugs, medicaments and biological substances; Z99.3 Dependence on wheelchair; J44.9 Chronic obstructive pulmonary disease, unspecified; Z98.890 Other specified postprocedural states; Z79.899 Other long term (current) drug therapy; W05.0XXA Fall from non-moving wheelchair, initial encounter
CPT/HCPCS: 36415; 70450; 71045; 71260; 72125; 73000; 74177; 80048; 80053; 80320; 83605; 83690; 83735; 84484; 85025; 85610; 86850; 86900; 86901; 93005; 93010; 94640; 94664; 94760; 94762; 97110; 97161; 97166; 97530; 99285-25; A9270; J2060; J2405; J3010; J7030; J7120; Q9967